=== PATIENT | male | born 2000 | race Caucasian/White ===

== ENCOUNTER → 2018-11-10 | Outpatient (CLI) | payer OTHER ==
[2018-11-10 19:29] LABS: Very Low Density Lipoprot Chol 33 mg/dL (6-28)
[2018-11-10 19:30] LABS: CHOL/HDL RATIO 7.4; Cholesterol 221 mg/dL (50-200); HDL Cholesterol 30 mg/dL (>39); LDL/HDL RATIO 5.3; Low Density Lipoprotein Chol 158 mg/dL (0-110); Triglycerides 166 mg/dL (30-140)
== END ==
LOC: LAB 18:22 → LAB SHORT 18:22
PROVIDERS: Nurse Practitioner Family
DX: Z00.00 Encounter for general adult medical examination without abnormal findings (principal)
CPT/HCPCS: 80061